=== PATIENT | female | born 1950 | race Caucasian/White ===

== ENCOUNTER → 2017-10-08 | Outpatient (CLI) | payer SELFPAY ==
[~2017-10-08] MED LIST: ANAS1TAB34 PO; ASPI-1471 PO; CETI-176 PO; FLUO-177 PO; FLUO40CA67 PO; GLY5 PO; LISI-353 PO; METF-411 PO
[2017-10-08 12:15] LABS: PLATELET COUNT, AUTOMATED 361 K/uL (150-450)
--- NOTE | 2017-10-08 14:51 | RADIOLOGY IMAGING REPORT ---
FACILITY: [facility] PATIENT NAME: Oumou Espinosa : 1950 MR: [id number] V: [id number] EXAM DATE: ORDERING PHYSICIAN: TRACY RODRIGUEZ TECHNOLOGIST: Location: [facility] - [place] Patient: Oumou Espinosa : 1950 Visit/Account:[id number] Date of Sevice: 10/08/2017 Exam type: TIBIA FIBULA RIGHT History: right leg pain x1 year, no injury Comparison: None Findings: There Is moderate narrowing of the medial compartment of the right knee. There is no evidence of acu te fracture-dislocation involving the right tibia or fibula.. No lytic or blastic bone lesions are se en IMPRESSION: 1. Moderate narrowing of the medial compartment of the right knee Report Dictated By: Kibmer Mattson MD at 10/08/2017 2:44 PM Report E-Signed By: Kimber Mattson MD at 10/08/2017 2:47 PM WSN:[id number]
== END ==
LOC: LAB 11:48
PROVIDERS: ATTEND Emergency Medicine
DX: M17.11 Unilateral primary osteoarthritis, right knee (principal); E11.9 Type 2 diabetes mellitus without complications; I10 Essential (primary) hypertension; R41.3 Other amnesia; M81.0 Age-related osteoporosis without current pathological fracture; E66.9 Obesity, unspecified; D64.9 Anemia, unspecified
CPT/HCPCS: 36415; 82040; 82247; 82306; 82310; 82374; 82435; 82465; 82565; 82607; 82947; 83036; 83540; 83550; 83718; 84075; 84132; 84155; 84295; 84443; 84450; 84460; 84478; 84520; 85025

== ENCOUNTER → 2017-11-12 | Outpatient (CLI) | payer SELFPAY ==
[~2017-11-12] MED LIST changes: +BLOO-1511 MC; +BLOO-960 MC; +INSU200I4 SUBQ; +LANC-714 MC; +PEN1DIS. MC; +ROSU10TA5 PO
[2017-11-12 16:39] LABS: PLATELET COUNT, AUTOMATED 366 K/uL (150-450)
== END ==
LOC: LAB 16:17
PROVIDERS: ATTEND Emergency Medicine
DX: D64.9 Anemia, unspecified (principal)
CPT/HCPCS: 36415; 85025

== ENCOUNTER 2018-03-24 15:45 | Inpatient (IN) | payer MEDICARE ==
[~2018-03-24] VITALS: Ht 157.5 cm; Wt 122.5 kg
[~2018-03-24 15:45] MED LIST changes: -METF-411 PO; +METF-450 PO
--- NOTE | 2018-03-24 15:59 | ER Report ---
History and Physical Time Seen By MD: 15:56 Hx. of Stated Complaint: redness in left arm HPI/ROS CHIEF COMPLAINT: Swelling and redness to the left arm HISTORY OF PRESENT ILLNESS: This is a 67-year-old female who presents to the emergency department for swelling and redness of the left arm. Patient states that about 2 days ago she cut her left index finger on a can, did clean the wound, did apply some bacitracin and a bandage however she was working in the basement after and didn't come into contact with some sewage, she states she continue to clean her hands and place bacitracin to the small laceration. Then today she began to have some chills, no documented fevers at home. Then around 1:00 this afternoon she noticed the left arm which does have lymphedema was read, with increased swelling and hot to the touch, she became concerned and subsequently came to the ER for further evaluation. Patient does have a t emperature upon arrival of 100.0, her left arm from the wrist to the mid bicep is red and hot to touch. She denies chest pains or shortness of breath. No other injuries, no other concerns at this time. REVIEW OF SYSTEMS: Constitutional: As above. Eyes: No discharge. ENT: No sore throat. Cardiovascular: No chest pain, no palpitations. Respiratory: No cough, no shortness of breath. Gastrointestinal: No abdominal pain, no vomiting. Genitourinary: No hematuria. Musculoskeletal: As above. Skin: As above. Neurological: No headache. Allergies: Coded Allergies: dog dander (Verified Allergy, Unknown, congestion, 10/08/17) grass pollen (Verified Allergy, Unknown, congestion, 10/08/17) mold (Verified Allergy, Unknown, 10/08/17) tree and shrub pollen (Verified Allergy, Unknown, congestion, 10/08/17) Home Meds Active Scripts Lancets (LANCETS) 1 Each Each, EACH MC DAILY, #30 11 Refills Prov:TRACY RODRIGUEZ MD 12/04/17 Anastrozole (ANASTROZOLE) 1 Mg Tablet, 1 MG PO DAILY, #90 TAB 3 Refills Prov:TRACY RODRIGUEZ MD 10/08/17 Fluoxetine Hcl (FLUOXETINE HCL) 40 Mg Capsule, 40 MG PO QDAY, #90 CAPSULE 3 Refills Prov:TRACY RODRIGUEZ MD 10/08/17 Lisinopril/Hydrochlorothiazide (LISINOPRIL-HCTZ 20-12.5 MG TAB) 1 Each Tablet, 1 EACH PO DAILY, #90 TAB 3 Refills Prov:TRACY RODRIGUEZ MD 10/08/17 Metformin Hcl (METFORMIN HCL) 500 Mg Tablet, 2 TAB PO BID, #360 TAB 3 Refills Prov:TRACY RODRIGUEZ MD 10/08/17 Reported Medications Melatonin (MELATONIN) 3 Mg Tablet, 3 MG PO QPM PRN for SLEEP 03/24/18 Cetirizine Hcl (ZYRTEC) 10 Mg Tablet, 10 MG PO QDAY PRN for PRN, TAB 10/08/17 Aspirin (ASPIR 81) 81 Mg Tablet.dr, 1 TAB PO DAILY, TAB 10/08/17 Discontinued Scripts Pen Needle, Diabetic, Safety (PEN NEEDLE) 1 Each Dis.needle, EACH MC DAILY, #1 Prov:TRACY RODRIGUEZ MD 11/12/17 Blood Sugar Diagnostic (GLUCOSE TEST STRIP) 1 Each Strip, 1 EACH MC DAILY, #30 STRIP 11 Refills Prov:TRACY RODRIGUEZ MD 11/12/17 Blood-Glucose Meter (BLOOD GLUCOSE METER) 1 Each Each, EACH MC, #1 Prov:TRACY RODRIGUEZ MD 11/12/17 Insulin Degludec (Tresiba Flextouch U-200) 200 Unit/Ml (3 Ml) Insuln.pen, 30 UNITS SUBQ HS, #1 BOX 11 Refills Prov:TRACY RODRIGUEZ MD 11/12/17 Rosuvastatin Calcium (Rosuvastatin Calcium) 10 Mg Tablet, 1 TAB PO HS, #30 TAB 11 Refills Prov:TRACY RODRIGUEZ MD 11/12/17 Past Medical/Surgical History The patient has a past medical and surgical history of GERD, right knee arthritis, wears glasses, type II diabetes, lymphedema, left breast cancer, bilateral breast lumpectomies, hysterectomy. Reviewed Nurses Notes: Yes Smoking Status: Never Smoker Exposure to Second Hand Smoke?: Yes ( smoked) Constitutional Vital Sign - Last 24 Hours 03/24/18 03/24/18 03/24/18 03/24/18 15:45 15:50 15:52 16:00 Temp 100.4 Pulse ??? 107 96 Resp 16 B/P (MAP) 168/89 168/89 (115) 159/87 (111) Pulse Ox 91 94 O2 Delivery Room Air 03/24/18 03/24/18 03/24/18 03/24/18 16:15 16:30 16:41 16:45 Pulse 100 97 94 Resp 17 B/P (MAP) 156/80 (105) Pulse Ox 90 89 91 03/24/18 03/24/18 03/24/18 03/24/18 17:00 17:05 17:20 17:30 Pulse 97 94 96 Resp 20 12 33 B/P (MAP) 138/65 (89) 147/79 (101) Pulse Ox 81 89 88 03/24/18 03/24/18 03/24/18 17:35 17:40 17:45 Pulse 104 99 104 Resp 35 14 13 Pulse Ox 92 95 90 Physical Exam General Appearance: The patient is alert, has no immediate need for airway protection and no signs of toxicity. Eyes: Pupils equal and round no pallor or injection. ENT, Mouth: Mucous membranes are moist. Respiratory: There are no retractions, lungs are clear to auscultation. Cardiovascular: Regular rate and rhythm, systolic murmur, no clicks or rubs. Gastrointestinal: Abdomen is soft and non tender, no masses, bowel sounds normal. Neurological: Alert and oriented X4. Moving all studies. Following all commands. No focal neurodeficits. Skin/Extremities: Left arm from the hand to the mid bicep is hot to touch, erythema from the wrist to the mid bicep. No edema of the left hand. Left arm significantly larger than the left, history of lymphedema. Small well approximated healing laceration to the palmar side of the left index finger between the MCP and PIP, no erythema or cellulitic appearance or drainage noted. Musculoskeletal: Neck is supple non tender. DIFFERENTIAL DIAGNOSIS: After history and physical exam differential diagnosis was considered for cellulitis, lymphedema, osteomyelitis, septic arthritis, gout. Medical Decision Making Data Points Result Diagram: 03/24/18 1626 03/24/18 1626 Laboratory Hematology Test 03/24/18 16:26 Red Blood Count 4.34 M/uL (4.17-5.56) Mean Corpuscular Volume 78.4 fL (80.0-96.0) Mean Corpuscular Hemoglobin 24.9 pg (26.0-33.0) Mean Corpuscular Hemoglobin Concent 31.8 g/dL (32.0-36.0) Red Cell Distribution Width 15.8 % (11.5-14.5) Mean Platelet Volume 8.6 fL (7.2-11.1) Neutrophils (%) (Auto) 91.9 % (39.4-72.5) Lymphocytes (%) (Auto) 3.9 % (17.6-49.6) Monocytes (%) (Auto) 3.7 % (4.1-12.4) Eosinophils (%) (Auto) 0.1 % (0.4-6.7) Basophils (%) (Auto) 0.4 % (0.3-1.4) Nucleated RBC Relative Count (auto) 0.0 /100WBC Neutrophils # (Auto) 9.4 K/uL (2.0-7.4) Lymphocytes # (Auto) 0.4 K/uL (1.3-3.6) Monocytes # (Auto) 0.4 K/uL (0.3-1.0) Eosinophils # (Auto) 0.0 K/uL (0.0-0.5) Basophils # (Auto) 0.0 K/uL (0.0-0.1) Nucleated RBC Absolute Count (auto) 0.00 K/uL Sodium Level 133 mmol/L (137-145) Potassium Level 4.6 mmol/L (3.5-5.0) Chloride Level 98 mmol/L (98-107) Carbon Dioxide Level 24 mmol/L (22-31) Blood Urea Nitrogen 20 mg/dl (7-18) Creatinine 1.00 mg/dl (0.52-1.04) Glomerular Filtration Rate Calc 55.3 Random Glucose 307 mg/dl (75-110) Lactate 2.5 mmol/L (0.7-2.1) Calcium Level 10.0 mg/dl (8.4-10.2) Total Bilirubin 0.3 mg/dl (0.2-1.3) Aspartate Amino Transf (AST/SGOT) 24 U/L (0-35) Alanine Aminotransferase (ALT/SGPT) 21 U/L (0-56) Alkaline Phosphatase 74 U/L (0-126) Total Protein 6.9 g/dl (6.3-8.2) Albumin 3.9 g/dl (3.5-5.0) Chemistry Test 03/24/18 16:26 White Blood Count 10.2 k/uL (4.5-11.0) Red Blood Count 4.34 M/uL (4.17-5.56) Hemoglobin 10.8 g/dL (12.0-16.0) Hematocrit 34.0 % (34.0-47.0) Mean Corpuscular Volume 78.4 fL (80.0-96.0) Mean Corpuscular Hemoglobin 24.9 pg (26.0-33.0) Mean Corpuscular Hemoglobin Concent 31.8 g/dL (32.0-36.0) Red Cell Distribution Width 15.8 % (11.5-14.5) Platelet Count 340 K/uL (150-450) Mean Platelet Volume 8.6 fL (7.2-11.1) Neutrophils (%) (Auto) 91.9 % (39.4-72.5) Lymphocytes (%) (Auto) 3.9 % (17.6-49.6) Monocytes (%) (Auto) 3.7 % (4.1-12.4) Eosinophils (%) (Auto) 0.1 % (0.4-6.7) Basophils (%) (Auto) 0.4 % (0.3-1.4) Nucleated RBC Relative Count (auto) 0.0 /100WBC Neutrophils # (Auto) 9.4 K/uL (2.0-7.4) Lymphocytes # (Auto) 0.4 K/uL (1.3-3.6) Monocytes # (Auto) 0.4 K/uL (0.3-1.0) Eosinophils # (Auto) 0.0 K/uL (0.0-0.5) Basophils # (Auto) 0.0 K/uL (0.0-0.1) Nucleated RBC Absolute Count (auto) 0.00 K/uL Glomerular Filtration Rate Calc 55.3 Lactate 2.5 mmol/L (0.7-2.1) Calcium Level 10.0 mg/dl (8.4-10.2) Total Bilirubin 0.3 mg/dl (0.2-1.3) Aspartate Amino Transf (AST/SGOT) 24 U/L (0-35) Alanine Aminotransferase (ALT/SGPT) 21 U/L (0-56) Alkaline Phosphatase 74 U/L (0-126) Total Protein 6.9 g/dl (6.3-8.2) Albumin 3.9 g/dl (3.5-5.0) ED Course/Re-evaluation Clinical Indication for ER IV: Hydration, IV Access ED Course The patient was back to room. A history and physical were obtained. Differential diagnoses were considered. An IV was started. A CBC, CMP, lactate and blood cultures were obtained. 1 L normal saline was given.CBC showing normal white count of 10.2 however does have a significant shift of 91.9, sodium 133, glucose 307, lactate 2.5. Given the patient's tachycardia, fever, rapid onset of the symptoms, her diabetes and history of lymphedema on the left arm I did tell strongly about admitting the patient to the hospital, I did contact Dr. Kaylie dunne is notable, he is accepting the patient in the hospitalist services for cellulitis of the left upper extremity. The patient was in agreement with this plan care and admitted to the medical floor. 03/24/2018 5:38:54 pm I did speak with Dr. Kaylie dunne, regarding the patient's case, he 6 of the patient and the hospitalist services. Patient will be admitted to the medical floor for cellulitis of the left arm. Decision to Disposition Date: Mar 24, 2018 Decision to Disposition Time: 17:38 Depart Departure Latest Vital Signs Vital Signs Date Time Temp Pulse Resp B/P (MAP) Pulse Ox O2 Delivery O2 Flow Rate FiO2 03/24/18 17:45 104 13 90 03/24/18 17:30 147/79 (101) 03/24/18 15:50 100.4 Room Air Impression: Primary Impression: Cellulitis of left arm Condition: Improved Disposition: Admitted from ER Referrals: TRACY RODRIGUEZ MD (PCP) KATHRYN SHELL MILK TREATER- Mar 24, 2018 15:59
[2018-03-24] MEDS ORDERED: NS(*) 0.9% 1000 ML BAG 1,000 ML IV ONE (16:11)
[2018-03-24] MEDS ORDERED: VANCOMYCIN(*) 1 GM VIAL 1.75 GM in NS(*) 0.9% 250 ML BAG 250 ML IVPB ONE (16:15)
[2018-03-24] MEDS ORDERED: ACETAMINOPHEN 325 MG TAB PO ONE (16:15)
[2018-03-24 16:40] LABS: PLATELET COUNT, AUTOMATED 340 K/uL (150-450)
[2018-03-24 18:20] VITALS: BP 169/75
[2018-03-24] MEDS ORDERED: ONDANSETRON 4 MG/2 ML VIAL IVP PRN (19:05)
[2018-03-24] MEDS ORDERED: FLUSH 10 ML SYR IVP PRN (19:05)
[2018-03-24] MEDS ORDERED: ACETAMINOPHEN 325 MG TAB PO PRN ×2 (19:05)
[2018-03-24] MEDS ORDERED: NS(*) 0.9% 1000 ML BAG 1,000 ML IV PRN (19:25)
[2018-03-24] MEDS ORDERED: CETIRIZINE HCL 10 MG TAB PO PRN (19:40)
--- NOTE | 2018-03-24 19:40 | History & Physical ---
History of Present Illness Chief Complaint L arm erythema History of Present Illness 67F with PMHx of bilateral mastectomy after L and R breast cancers, L arm lymphedema, DM, presented with sudden erythema and swelling of L arm. Reports cut on finger of L hand which appears to be well healed, had been exposed to raw sewage after cut. Was treating with bacitracin ointment and today noted sudden reddening of arm, worsening edema. In ER noted to have fever 100.4, mild tachycardia, erythema extending from wrist to mid biceps area, no hand invol vement apparent. Admitted for IV antibiotics and monitoring. History Problems: (1) Depression Status: Chronic (2) Type II diabetes mellitus Status: Chronic (3) Bilateral breast cancer Status: Chronic Home Meds Active Scripts Lancets (LANCETS) 1 Each Each, EACH MC DAILY, #30 11 Refills Prov:TRACY RODRIGUEZ MD 12/04/17 Anastrozole (ANASTROZOLE) 1 Mg Tablet, 1 MG PO DAILY, #90 TAB 3 Refills Prov:TRACY RODRIGUEZ MD 10/08/17 Fluoxetine Hcl (FLUOXETINE HCL) 40 Mg Capsule, 40 MG PO QDAY, #90 CAPSULE 3 Refills Prov:TRACY RODRIGUEZ MD 10/08/17 Lisinopril/Hydrochlorothiazide (LISINOPRIL-HCTZ 20-12.5 MG TAB) 1 Each Tablet, 1 EACH PO DAILY, #90 TAB 3 Refills Prov:TRACY RODRIGUEZ MD 10/08/17 Metformin Hcl (METFORMIN HCL) 500 Mg Tablet, 2 TAB PO BID, #360 TAB 3 Refills Prov:TRACY RODRIGUEZ MD 10/08/17 Reported Medications Cetirizine Hcl (ZYRTEC) 10 Mg Tablet, 10 MG PO QDAY PRN for PRN, TAB 10/08/17 Aspirin (ASPIR 81) 81 Mg Tablet.dr, 1 TAB PO DAILY, TAB 10/08/17 Discontinued Scripts Pen Needle, Diabetic, Safety (PEN NEEDLE) 1 Each Dis.needle, EACH MC DAILY, #1 Prov:TRACY RODRIGUEZ MD 11/12/17 Blood Sugar Diagnostic (GLUCOSE TEST STRIP) 1 Each Strip, 1 EACH MC DAILY, #30 STRIP 11 Refills Prov:TRACY RODRIGUEZ MD 11/12/17 Blood-Glucose Meter (BLOOD GLUCOSE METER) 1 Each Each, EACH MC, #1 Prov:TRACY RODRIGUEZ MD 11/12/17 Insulin Degludec (Tresiba Flextouch U-200) 200 Unit/Ml (3 Ml) Insuln.pen, 30 UNITS SUBQ HS, #1 BOX 11 Refills Prov:TRACY RODRIGUEZ MD 11/12/17 Rosuvastatin Calcium (Rosuvastatin Calcium) 10 Mg Tablet, 1 TAB PO HS, #30 TAB 11 Refills Prov:TRACY RODRIGUEZ MD 11/12/17 Allergies: Coded Allergies: dog dander (Verified Allergy, Unknown, congestion, 10/08/17) grass pollen (Verified Allergy, Unknown, congestion, 10/08/17) mold (Verified Allergy, Unknown, 10/08/17) tree and shrub pollen (Verified Allergy, Unknown, congestion, 10/08/17) Patient History: FH: stomach ulcer FATHER, , Age:50 FH: suicide FATHER, , Age:50 Hypercalcemia MOTHER, Age:86 Smoking Status: Never Smoker Exposure to Second Hand Smoke?: Yes ( smoked) Social Drug Use: Never Review of Systems All Systems Reviewed/Normal: Yes, Except as Noted Constitutional: Fever Respiratory: No Shortness of Breath Gastrointestinal: No Nausea, No Vomiting Musculoskeletal: Other (L arm erythema) Exam Vital Signs Vital Signs Date Time Temp Pulse Resp B/P (MAP) Pulse Ox O2 Delivery O2 Flow Rate FiO2 03/24/18 18:20 100.3 91 16 169/75 (106) 90 Nasal Cannula General Appearance: Alert, Awake, No Acute Distress Neuro: No Gross deficits Eyes: PERRLA ENT: Normal Cardiovascular: Normal Rhythm & Peripheral Pulses Respiratory: No Respiratory Distress GI: Abd Soft and Non-Tender Lymph: Other (L arm lymphedema) Musculoskeletal: No Weakness/Pain Extremities: Soft and Non Tender, Warm, Pulses, Perfused, Edema, Other (erythema from wrist to mid upper arm on L) Integumentary: Skin Intact without Lesion / Mass Psych: Alert & Oriented X3 Medical Decision Making Data Points Result Diagram: 03/24/18 1626 03/24/18 1626 Assessment and Plan Problems: (1) Cellulitis of left arm Status: Acute Assessment & Plan: Begin empiric vancomycin, with history of contact with sewage will add ceftriaxone for improved gram negative coverage. History of rapid progression and mild systemic symptoms. US ordered to rule out DVT given presentation and Hx of single previous DVT. Blood culture pending. (2) Bilateral breast cancer Status: Chronic Assessment & Plan: Chronic L arm lymphedema, on anastrazole. (3) Type II diabetes mellitus Status: Chronic Assessment & Plan: Glucose running very high on admission, will begin basal insulin and SSI. DIabetic diet and accuchecks achs. (4) Hypertension Status: Chronic Assessment & Plan: Continue chronic lisinopril and HCTZ. Venous Thromboembolism Antithrombotics Is Pt On Any Antithrombotics?: Yes Exam Sepsis Risk: No Definite Risk BENTON CALLAHAN DO Mar 24, 2018 19:39
[2018-03-24 19:58] VITALS: BP 139/65
[2018-03-24] MEDS ORDERED: cefTRIAXone 1 GM VIAL IVP SCH (20:00)
[2018-03-24] MEDS ORDERED: MELA3TAB31 PO (20:02)
--- NOTE | 2018-03-24 20:15 | RADIOLOGY IMAGING REPORT ---
FACILITY: [facility] PATIENT NAME: Oumou Espinosa : 1950 MR: [id number] V: [id number] EXAM DATE: ORDERING PHYSICIAN: BENTON KAMARA TECHNOLOGIST: Location: [facility] Patient: Oumou Espinosa : 1950 Visit/Account:[id number] Date of Sevice: 03/24/2018 US VENOUS DOPPLER - UPPER EXT LT HISTORY: L upper extremity swelling, eval DVT ADDITIONAL HISTORY: None. COMPARISON: None. FINDINGS: Grayscale compression, duplex and color Doppler interrogation of the left upper extremity veins was p erformed. Jugular vein - Negative. Subclavian vein - Negative. Axillary vein - Negative. Basilic vein - Negative. Cephalic vein - Negative. Brachial veins - Negative. IMPRESSION: 1. Negative left arm for DVT. Report Dictated By: Magen Cordoba MD at 03/24/2018 8:11 PM Report E-Signed By: Magen Cordoba MD at 03/24/2018 8:12 PM WSN:[id number]
[2018-03-24] MEDS: INSULIN HUM LISPRO 100 UN/ML 3 ML VIAL SUBQ PRN (21:17)
[2018-03-24 22:52] VITALS: BP 136/56
[2018-03-25] MEDS ORDERED: VANCOMYCIN(*) 1 GM VIAL 1 GM, VANCOMYCIN (*) 0.5 GM VIAL 0.25 GM in NS(*) 0.9% 250 ML B... IVPB SCH ×2 (04:00→09:00)
[2018-03-25 04:56] VITALS: BP 114/55
[2018-03-25 06:03] LABS: PLATELET COUNT, AUTOMATED 251 K/uL (150-450)
[2018-03-25 07:01] VITALS: BP 135/63
[2018-03-25] MEDS ORDERED: metFORMIN HCL 500 MG TAB PO SCH (08:00)
[2018-03-25] MEDS ORDERED: MELATONIN 3 MG TAB PO PRN (08:00)
[2018-03-25] MEDS: INSULIN HUM LISPRO 100 UN/ML 3 ML VIAL SUBQ PRN ×2 (08:09→11:29)
[2018-03-25] MEDS ORDERED: ASPIRIN 81 MG ENTERIC COATED PO SCH (09:00)
[2018-03-25] MEDS ORDERED: FLUoxetine HCL 20 MG CAP PO SCH (09:00)
[2018-03-25] MEDS ORDERED: LISINOPRIL 20 MG TAB PO SCH (09:00)
[2018-03-25] MEDS ORDERED: INSULIN DETEMIR 100 UN/ML VIAL SUBQ SCH (09:00)
[2018-03-25] MEDS ORDERED: HYDROCHLOROTHIAZIDE 25 MG TAB PO SCH (09:00)
[2018-03-25] MEDS ORDERED: ENOXAPARIN 40 MG/0.4ML SYR SC SCH (09:00)
[2018-03-25] MEDS ORDERED: ANASTROZOLE 1 MG TAB PO SCH (09:00)
[2018-03-25] MEDS ORDERED: CEPHALEXIN MONO 500 MG CAP PO SCH ×2 (09:35→13:00)
[2018-03-25 11:24] VITALS: BP 131/58
[2018-03-25] MEDS ORDERED: CEPH500C24 PO (11:57)
--- NOTE | 2018-03-25 12:07 | Hospitalist Depart ---
Discharge Summary Reason for Hosp/Final Diag: (1) Cellulitis of left arm Status: Acute Hospital Course & Plan: She presented with erythema, pain and swelling in the left arm that started the afternoon of admission. The erythema and pain progressed quickly up the entire arm. She had a fever to 100.4 in the ER. She was started on vancomycin, because of the history of contact with sewage and added ceftriaxone for improved gram negative coverage. There was no clot in the arm by venogram. Today, the erythema and pain are almost entirely resolved. She has been afebrile since admission. WBC remains normal. She would like to go home. Will have her take a course of 7 days of Keflex because of the concern of recurrence in the setting of chronic lymphedema. (2) Bilateral breast cancer Status: Chronic Hospital Course & Plan: Chronic L arm lymphedema, on anastrazole. (3) Type II diabetes mellitus Status: Chronic Hospital Course & Plan: Glucose was very high on admission secondary to the infection. She was placed on SSI with AC and HS checks. She was restarted on metformin this morning (held on admission). Her glucose was 165 at last check. (4) Hypertension Status: Chronic Hospital Course & Plan: Continue chronic lisinopril and HCTZ. Departure Weight (Pounds): 270 Result Diagram: 03/25/18 0535 03/25/18 0535 Item Value Date Time Sodium Level 133 mmol/L L 03/24/18 1626 Potassium Level 4.6 mmol/L 03/24/18 1626 Blood Urea Nitrogen 20 mg/dl H 03/24/18 1626 Creatinine 1.00 mg/dl 03/24/18 1626 Carbon Dioxide Level 24 mmol/L 03/24/18 1626 Chloride Level 98 mmol/L 03/24/18 1626 Lactate 2.5 mmol/L H 03/24/18 1626 Random Glucose 307 mg/dl H 03/24/18 1626 Calcium Level 10.0 mg/dl 03/24/18 1626 Total Bilirubin 0.3 mg/dl 03/24/18 1626 Aspartate Amino Transf (AST/SGOT) 24 U/L 03/24/18 1626 Alanine Aminotransferase (ALT/SGPT) 21 U/L 03/24/18 1626 Alkaline Phosphatase 74 U/L 03/24/18 1626 Total Protein 6.9 g/dl 03/24/18 1626 Albumin 3.9 g/dl 03/24/18 1626 White Blood Count 10.2 k/uL 03/24/18 1626 White Blood Count 7.2 k/uL 03/25/18 0535 Hemoglobin 9.9 g/dL L 03/25/18 0535 Hemoglobin 10.8 g/dL L 03/24/18 1626 Mean Corpuscular Volume 78.4 fL L 03/24/18 1626 Mean Corpuscular Volume 79.3 fL L 03/25/18 0535 Platelet Count 251 K/uL 03/25/18 0535 Platelet Count 340 K/uL 03/24/18 1626 Neutrophils (%) (Auto) 91.9 % H 03/24/18 1626 Neutrophils (%) (Auto) 82.0 % H 03/25/18 0535 No growth to date from 2 of 2 blood cultures that were drawn on 03/24/18 Imaging 03/24/18 Venogram - 1. Negative left arm for DVT. Condition: Improved Discharge: Home Discharge Instructions Home Meds Active Scripts Cephalexin Monohydrate (CEPHALEXIN) 500 Mg Cap, 500 MG PO QID, #28 CAP Prov:LESTER OLIVEIRA MD 03/25/18 Lancets (LANCETS) 1 Each Each, EACH MC DAILY, #30 11 Refills Prov:TRACY RODRIGUEZ MD 12/04/17 Anastrozole (ANASTROZOLE) 1 Mg Tablet, 1 MG PO DAILY, #90 TAB 3 Refills Prov:TRACY RODRIGUEZ MD 10/08/17 Fluoxetine Hcl (FLUOXETINE HCL) 40 Mg Capsule, 40 MG PO QDAY, #90 CAPSULE 3 Refills Prov:TRACY RODRIGUEZ MD 10/08/17 Lisinopril/Hydrochlorothiazide (LISINOPRIL-HCTZ 20-12.5 MG TAB) 1 Each Tablet, 1 EACH PO DAILY, #90 TAB 3 Refills Prov:TRACY RODRIGUEZ MD 10/08/17 Metformin Hcl (METFORMIN HCL) 500 Mg Tablet, 2 TAB PO BID, #360 TAB 3 Refills Prov:TRACY RODRIGUEZ MD 10/08/17 Reported Medications Melatonin (MELATONIN) 3 Mg Tablet, 3 MG PO QPM PRN for SLEEP 03/24/18 Cetirizine Hcl (ZYRTEC) 10 Mg Tablet, 10 MG PO QDAY PRN for PRN, TAB 10/08/17 Aspirin (ASPIR 81) 81 Mg Tablet.dr, 1 TAB PO DAILY, TAB 10/08/17 Discontinued Scripts Pen Needle, Diabetic, Safety (PEN NEEDLE) 1 Each Dis.needle, EACH MC DAILY, #1 Prov:TRACY RODRIGUEZ MD 11/12/17 Blood Sugar Diagnostic (GLUCOSE TEST STRIP) 1 Each Strip, 1 EACH MC DAILY, #30 STRIP 11 Refills Prov:TRACY RODRIGUEZ MD 11/12/17 Blood-Glucose Meter (BLOOD GLUCOSE METER) 1 Each Each, EACH MC, #1 Prov:TRACY RODRIGUEZ MD 11/12/17 Insulin Degludec (Tresiba Flextouch U-200) 200 Unit/Ml (3 Ml) Insuln.pen, 30 UNITS SUBQ HS, #1 BOX 11 Refills Prov:TRACY RODRIGUEZ MD 11/12/17 Rosuvastatin Calcium (Rosuvastatin Calcium) 10 Mg Tablet, 1 TAB PO HS, #30 TAB 11 Refills Prov:TRACY RODRIGUEZ MD 11/12/17 Diet: Diabetic Activity: As Tolerated Special Instructions: Go to the ER for chills or worsening or not improving redness on the arm. Copies to: TRACY RODRIGUEZ MD ; Venous Thromboembolism Antithrombotics Is Pt On Any Antithrombotics?: Yes LESTER OLIVEIRA MD Mar 25, 2018 12:07
[2018-03-28] MEDS ORDERED: INFLUENZA VIRUS VAC 0.5ML SYR IM ONLY ONE (09:00)
== END 2018-03-25 14:25 | disposition home or self-care (01) | DRG 603 ==
LOC: ER 15:52 → MED 17:53
PROVIDERS: ADMIT Internal Medicine; ATTEND Internal Medicine
DX: L03.114 Cellulitis of left upper limb (principal); K21.9 Gastro-esophageal reflux disease without esophagitis; I10 Essential (primary) hypertension; I97.2 Postmastectomy lymphedema syndrome; E11.9 Type 2 diabetes mellitus without complications; F32.9 Major depressive disorder, single episode, unspecified; W26.8XXA Contact with other sharp object(s), not elsewhere classified, initial encounter; Y93.G3 Activity, cooking and baking; Y99.8 Other external cause status; Z90.710 Acquired absence of both cervix and uterus; Z79.4 Long term (current) use of insulin; Z79.84 Long term (current) use of oral hypoglycemic drugs; Z79.811 Long term (current) use of aromatase inhibitors; Z85.3 Personal history of malignant neoplasm of breast
CPT/HCPCS: 36415; 36416; 82040; 82247; 82310; 82374; 82435; 82565; 82947; 82948; 83036; 83605; 84075; 84132; 84155; 84295; 84450; 84460; 84520; 85025; 87040; J0696; J1650; J3370; J7030; J7050; J9999